=== PATIENT | male | born 1990 | race Caucasian/White ===

== ENCOUNTER 2023-02-07 12:04 | Day surgery (SDC) | payer OTHER ==
[2023-02-04 11:47] VITALS: BMI 35.5
[2023-02-07] MEDS ORDERED: PROPOFOL 40 ML ONE (13:16)
[2023-02-07] MEDS ORDERED: Lidocaine 1% PF 5 ML VIAL ONE (13:17)
[2023-02-07] MEDS ORDERED: ePHEDrine Sulfate 50 MG/10 ML VIAL ONE (13:28)
[2023-02-07] MEDS ORDERED: PROPOFOL 20 ML ONE (13:38)
== END 2023-02-07 14:24 | disposition home or self-care (01) ==
LOC: CSHSDC 12:04
PROVIDERS: ATTEND Internal Medicine Gastroenterology
PROC: 0DJD8ZZ Inspection of Lower Intestinal Tract, Via Natural or Artificial Opening Endoscopic (ICD-10-PCS; principal; 2023-02-07)
DX: K64.9 Unspecified hemorrhoids (principal); K21.9 Gastro-esophageal reflux disease without esophagitis; F32.A Depression, unspecified; B96.89 Other specified bacterial agents as the cause of diseases classified elsewhere; J30.9 Allergic rhinitis, unspecified; E78.5 Hyperlipidemia, unspecified; Z88.8 Allergy status to other drugs, medicaments and biological substances; Z79.899 Other long term (current) drug therapy
CPT/HCPCS: J2704